=== PATIENT | male | born 1965 | race Caucasian/White ===

== ENCOUNTER 2018-02-11 18:53 | Outpatient (REF) | payer MEDICAID, SELFPAY ==
[2018-02-11 22:19] LABS: ALT 26 U/L (12-78); AST 16 U/L (15-37); Albumin 3.9 g/dL (3.4-5.0); Alkaline Phosphatase 83 U/L (46-116); Anion Gap 11.8 mmol/L (3-11); BUN 14 mg/dL (7-18); Bilirubin, Total 0.4 mg/dL (0.2-1.0); CO2 25.2 mmol/L (21.0-32.0); CREATININE 0.93 mg/dL (0.70-1.30); Calcium 9.1 mg/dL (8.5-10.1); Chloride 104 mmol/L (98-107); Cholesterol 181 mg/dL (50-200); Glucose 93 mg/dL (70-100); HDL Cholesterol 42 mg/dL (40-60); LDL CHOLESTEROL 105 mg/dL (<100); Potassium 4.4 mmol/L (3.5-5.1); Sodium 141 mmol/L (136-145); Total Protein 6.9 g/dL (6.4-8.2); Triglyceride 310 mg/dL (30-150)
[2018-02-11 22:36] LABS: Hemoglobin A1C 5.9 % (4.5-6.2)
== END 2018-02-11 18:54 ==
LOC: NCHCN 18:53
PROVIDERS: PCP Internal Medicine; Visit Provider Nurse Practitioner Family
DX: Z13.1 Encounter for screening for diabetes mellitus (principal); Z13.228 Encounter for screening for other metabolic disorders; Z13.220 Encounter for screening for lipoid disorders; Z00.00 Encounter for general adult medical examination without abnormal findings
CPT/HCPCS: 80053; 80061; 83721; 83036

== ENCOUNTER 2019-07-20 13:53 | Outpatient (REF) | payer MEDICAID, SELFPAY ==
[2019-07-20 20:46] LABS: ALT 34 U/L (16-63); AST 18 U/L (15-37); Albumin 3.8 g/dL (3.4-5.0); Alkaline Phosphatase 80 U/L (46-116); Anion Gap 10.9 mmol/L (3-11); BUN 19 mg/dL (7-18); Bilirubin, Total 0.7 mg/dL (0.2-1.0); CO2 26.1 mmol/L (21.0-32.0); CREATININE 0.94 mg/dL (0.70-1.30); Calcium 9.2 mg/dL (8.5-10.1); Calculated LDL 87 mg/dL; Chloride 104 mmol/L (98-107); Cholesterol 193 mg/dL (<200); Glucose 110 mg/dL (74-106); HDL Cholesterol 45 mg/dL (40-60); Potassium 4.1 mmol/L (3.5-5.1); Sodium 141 mmol/L (136-145); Total Protein 6.8 g/dL (6.4-8.2); Triglyceride 307 mg/dL (<150)
== END 2019-07-20 14:13 ==
LOC: NCHCN 13:53
PROVIDERS: PCP Internal Medicine; Visit Provider Nurse Practitioner Family
DX: E78.1 Pure hyperglyceridemia (principal); F10.20 Alcohol dependence, uncomplicated
CPT/HCPCS: 80053; 80061

== ENCOUNTER 2019-08-31 08:22 | Outpatient (REF) | payer MEDICAID, SELFPAY ==
[2019-08-31 22:48] LABS: ALT 32 U/L (16-63); AST 21 U/L (15-37); Albumin 4.3 g/dL (3.4-5.0); Alkaline Phosphatase 77 U/L (46-116); Anion Gap 9.2 mmol/L (3-11); BUN 21 mg/dL (7-18); CO2 25.8 mmol/L (21.0-32.0); CREATININE 0.91 mg/dL (0.70-1.30); Calcium 8.8 mg/dL (8.5-10.1); Calculated LDL 86 mg/dL (<100); Chloride 103 mmol/L (98-107); Cholesterol 149 mg/dL (<200); Glucose 104 mg/dL (74-106); HDL Cholesterol 42 mg/dL (40-60); Potassium 4.5 mmol/L (3.5-5.1); Sodium 138 mmol/L (136-145); Total Protein 6.7 g/dL (6.4-8.2); Triglyceride 109 mg/dL (<150)
== END 2019-08-31 08:42 ==
LOC: NCHCN 08:22
PROVIDERS: PCP Nurse Practitioner Family; Visit Provider Nurse Practitioner Family
DX: E78.1 Pure hyperglyceridemia (principal)
CPT/HCPCS: 80053; 80061

== ENCOUNTER 2021-06-04 21:23 | Outpatient (REF) | payer MEDICAID, SELFPAY ==
[2021-06-04 22:20] LABS: ALT 46 U/L (16-63); AST 26 U/L (15-37); Alkaline Phosphatase 77 U/L (46-116); Anion Gap 7.6 mmol/L (3-11); BUN 19 mg/dL (7-18); CO2 29.4 mmol/L (21.0-32.0); CREATININE 1.4 mg/dL (0.70-1.30); Calcium 9.4 mg/dL (8.5-10.1); Calculated LDL 86 mg/dL (<100); Chloride 103 mmol/L (98-107); Cholesterol 169 mg/dL (<200); Estimated GFR 52.24 (mL/min/1.73m2); Glucose 105 mg/dL (74-106); HDL Cholesterol 50 mg/dL (40-60); Potassium 4.1 mmol/L (3.5-5.1); Sodium 140 mmol/L (136-145); Triglyceride 165 mg/dL (<150)
== END 2021-06-04 21:24 | disposition home or self-care (01) ==
LOC: NCHCN 21:23
PROVIDERS: PCP Nurse Practitioner Family; Visit Provider Nurse Practitioner Family
DX: E78.5 Hyperlipidemia, unspecified (principal); E78.1 Pure hyperglyceridemia; E66.9 Obesity, unspecified
CPT/HCPCS: 80053; 80061

== ENCOUNTER 2021-06-11 15:09 | Outpatient (REF) | payer MEDICAID, SELFPAY ==
[2021-06-11 18:34] LABS: Anion Gap 8.5 mmol/L (3-11); BUN 18 mg/dL (7-18); CO2 26.5 mmol/L (21.0-32.0); CREATININE 0.9 mg/dL (0.70-1.30); Calcium 9.2 mg/dL (8.5-10.1); Chloride 103 mmol/L (98-107); Glucose 98 mg/dL (74-106); Potassium 4.8 mmol/L (3.5-5.1); Sodium 138 mmol/L (136-145)
== END 2021-06-11 15:10 | disposition home or self-care (01) ==
LOC: NCHCN 15:09
PROVIDERS: PCP Nurse Practitioner Family; Visit Provider Nurse Practitioner Family
DX: I10 Essential (primary) hypertension (principal)
CPT/HCPCS: 80048

== ENCOUNTER 2022-05-02 18:23 | Outpatient (REF) | payer MEDICAID, SELFPAY ==
[2022-05-02 22:09] LABS: ALT 39 U/L (16-63); AST 30 U/L (15-37); Albumin 4.1 g/dL (3.4-5.0); Alkaline Phosphatase 74 U/L (46-116); Anion Gap 10.6 mmol/L (3-11); BUN 20 mg/dL (7-18); CO2 26.4 mmol/L (21.0-32.0); Calcium 9.4 mg/dL (8.5-10.1); Chloride 105 mmol/L (98-107); Estimated GFR 87.24 (mL/min/1.73m2); Glucose 94 mg/dL (74-106); Potassium 4.1 mmol/L (3.5-5.1); Sodium 142 mmol/L (136-145); Total Protein 7.6 g/dL (6.4-8.2)
== END 2022-05-02 18:24 | disposition home or self-care (01) ==
LOC: NCHCN 18:23
PROVIDERS: PCP Nurse Practitioner Family; Visit Provider Nurse Practitioner Family
DX: I10 Essential (primary) hypertension (principal)
CPT/HCPCS: 80053

== ENCOUNTER 2022-05-16 16:45 | Outpatient (REF) | payer MEDICAID, SELFPAY ==
[2022-05-16 17:19] LABS: Anion Gap 7.1 mmol/L (3-11); BUN 18 mg/dL (7-18); CO2 26.9 mmol/L (21.0-32.0); CREATININE 0.9 mg/dL (0.70-1.30); Calcium 9.3 mg/dL (8.5-10.1); Chloride 102 mmol/L (98-107); Glucose 107 mg/dL (74-106); Potassium 4.5 mmol/L (3.5-5.1); Sodium 136 mmol/L (136-145)
== END 2022-05-16 16:46 | disposition home or self-care (01) ==
LOC: NCHCN 16:45
PROVIDERS: PCP Nurse Practitioner Family; Visit Provider Nurse Practitioner Family
DX: I10 Essential (primary) hypertension (principal)
CPT/HCPCS: 80048

== ENCOUNTER 2022-10-07 13:03 | Outpatient (REF) | payer MEDICAID, SELFPAY ==
[2022-10-07 15:01] LABS: Anion Gap 7.3 mmol/L (3-11); BUN 15 mg/dL (7-18); CO2 28.7 mmol/L (21.0-32.0); CREATININE 1.1 mg/dL (0.70-1.30); Calcium 9.3 mg/dL (8.5-10.1); Chloride 101 mmol/L (98-107); Estimated GFR 77.33 (mL/min/1.73m2); Glucose 120 mg/dL (74-106); Potassium 4.3 mmol/L (3.5-5.1); Sodium 137 mmol/L (136-145)
== END 2022-10-07 13:04 | disposition home or self-care (01) ==
LOC: NCHCN 13:03
PROVIDERS: PCP Nurse Practitioner Family; Visit Provider Family Medicine
DX: I10 Essential (primary) hypertension (principal)
CPT/HCPCS: 80048

== ENCOUNTER 2023-03-31 15:55 | Outpatient (REF) | payer MEDICAID, SELFPAY ==
[2023-03-31 15:32] LABS: Calculated LDL 95 mg/dL (<100); Cholesterol 170 mg/dL (<200); HDL Cholesterol 58 mg/dL (40-60); Triglyceride 85 mg/dL (<150)
== END 2023-03-31 15:56 | disposition home or self-care (01) ==
LOC: NCHCN 15:55
PROVIDERS: PCP Nurse Practitioner Family; Visit Provider Family Medicine
DX: E78.5 Hyperlipidemia, unspecified (principal)
CPT/HCPCS: 80061

== ENCOUNTER 2023-07-15 08:25 | Outpatient (REF) | payer MEDICAID, SELFPAY ==
[2023-07-15 21:47] LABS: Bacteria Rare HPF (Negative); C & S Indicated? C&S Done As Ordered; Casts 0-2 Hyaline LPF (Negative); Crystals Negative HPF (Negative); Epithelial Cells Negative HPF (Negative); Mucus Heavy (Negative); RBC 0-2 HPF (0-2)
== END 2023-07-15 08:26 | disposition home or self-care (01) ==
LOC: NCHCN 08:25
PROVIDERS: PCP Nurse Practitioner Family; Visit Provider Family Medicine
DX: R82.998 Other abnormal findings in urine (principal); R10.9 Unspecified abdominal pain
CPT/HCPCS: 81003; 81015; 87086

== ENCOUNTER 2023-10-07 10:21 | Outpatient (REF) | payer MEDICAID, SELFPAY ==
[2023-10-07 15:31] LABS: Hemoglobin A1C 5.9 % (<5.7)
[2023-10-07 15:39] LABS: ALT 31 U/L (16-63); AST 20 U/L (15-37); Albumin 3.8 g/dL (3.4-5.0); Alkaline Phosphatase 80 U/L (46-116); Anion Gap 6.5 mmol/L (3-11); BUN 17 mg/dL (7-18); CO2 28.5 mmol/L (21.0-32.0); CREATININE 0.9 mg/dL (0.70-1.30); Calcium 9.1 mg/dL (8.5-10.1); Calculated LDL 68 mg/dL (<100); Chloride 105 mmol/L (98-107); Cholesterol 150 mg/dL (<200); Estimated GFR 97.78 (mL/min/1.73m2); Glucose 106 mg/dL (74-106); HDL Cholesterol 46 mg/dL (40-60); Potassium 4.4 mmol/L (3.5-5.1); Sodium 140 mmol/L (136-145); TSH 1.14 uIU/Ml (0.36-3.74); Total Protein 7.3 g/dL (6.4-8.2); Triglyceride 180 mg/dL (<150)
== END 2023-10-07 10:22 | disposition home or self-care (01) ==
LOC: NCHCN 10:21
PROVIDERS: PCP Nurse Practitioner Family; Visit Provider Family Medicine
DX: E78.5 Hyperlipidemia, unspecified (principal); R53.83 Other fatigue; R73.03 Prediabetes
CPT/HCPCS: 80053; 80061; 83036; 84443

== ENCOUNTER 2024-10-04 15:43 | Outpatient (REF) | payer MEDICAID, SELFPAY ==
[2024-10-04 21:40] LABS: Hemoglobin A1C 5.8 % (<5.7)
[2024-10-04 21:47] LABS: ALT 31 U/L (16-63); AST 20 U/L (15-37); Alkaline Phosphatase 85 U/L (46-116); BUN 20 mg/dL (7-18); Bilirubin, Total 1.1 mg/dL (0.2-1.0); Calcium 9.5 mg/dL (8.5-10.1); Chloride 105 mmol/L (98-107); Estimated GFR 85.63 (mL/min/1.73m2); Glucose 115 mg/dL (74-106); Sodium 140 mmol/L (136-145); Total Protein 7.4 g/dL (6.4-8.2)
== END 2024-10-04 15:44 | disposition home or self-care (01) ==
LOC: NCHCN 15:43
PROVIDERS: PCP Nurse Practitioner Family; Visit Provider Family Medicine
DX: I10 Essential (primary) hypertension (principal); R73.03 Prediabetes
CPT/HCPCS: 80053; 83036